=== PATIENT | male | born 1955 | race Caucasian/White ===

== ENCOUNTER 2019-06-04 07:08 | Inpatient (IN) ==
[2019-06-04] MEDS ORDERED: Famotidine 20 MG/2 ML VIAL IVP ONE (07:27)
[2019-06-04] MEDS ORDERED: Acetaminophen IV 1,000 MG/100 ML INFUS..BTL IVPB ONE (07:28)
[2019-06-04] MEDS ORDERED: Gabapentin 300 MG CAPSULE PO ONE (07:28)
[2019-06-04] MEDS ORDERED: Celecoxib 100 MG CAPSULE PO ONE (07:28)
[2019-06-04] MEDS ORDERED: Ringers Solution, Lactated 1,000 ML IVC SCH ×2 (07:30→11:52)
[2019-06-04] MEDS ORDERED: CeFAZolin Syr 2,000MG/20 ML 2,000 MG/20 ML SYRINGE IVPB ONE (07:32)
[2019-06-04] MEDS ORDERED: *HR* OxyCODONE Immed Rel 5 MG TABLET PO PRN ×2 (08:12→11:52)
[2019-06-04] MEDS ORDERED: Ondansetron 4 MG/2 ML VIAL IVP ONE (08:12)
[2019-06-04] MEDS ORDERED: Lidocaine -MPF 2% 2 ML VIAL ONE (08:24)
[2019-06-04] MEDS ORDERED: Propofol 500 MG/50 ML INFUS..BTL ONE (08:24)
[2019-06-04] MEDS ORDERED: *HR* Midazolam HCl 2 MG/2 ML VIAL ONE (08:24)
[2019-06-04] MEDS ORDERED: Ondansetron 4 MG/2 ML VIAL ONE (08:24)
[2019-06-04] MEDS ORDERED: Dexamethasone 4 MG/ML VIAL ONE (08:24)
[2019-06-04] MEDS ORDERED: *HR* FentaNYL (PF) 100 MCG/2 ML VIAL ONE (08:24)
[2019-06-04] MEDS ORDERED: Ethanol\\Acetic Acid\\Na Ace\\Ben 1,000 ML IRRIG.SOLN IR ONE (08:36)
[2019-06-04] MEDS ORDERED: Tranexamic Acid 1,000 MG/10 ML VIAL ONE (09:41)
[2019-06-04] MEDS ORDERED: EPHEDrine 50 MG/ML VIAL ONE (09:46)
[2019-06-04 11:28] LABS: Hematocrit 37.8 % (37.5-50.1); Hemoglobin 12.8 g/dL (12.9-16.9)
[2019-06-04] MEDS ORDERED: D5% in Water 1,000 ML IVC PRN (11:52)
[2019-06-04] MEDS ORDERED: Dextrose Gel 15 GM/37.5 ML TUBE PO PRN ×2 (11:52)
[2019-06-04] MEDS ORDERED: Temazepam 15 MG CAPSULE PO PRN (11:52)
[2019-06-04] MEDS ORDERED: NON-FORMULARY MEDICATION 1 EACH EACH (Multivitamin [Daily Multiple Vitamin] 1 TAB) PO SCH (11:52)
[2019-06-04] MEDS ORDERED: *HR* Promethazine 25 MG/ML VIAL IVP PRN (11:52)
[2019-06-04] MEDS ORDERED: MOM Conc 10 ML UD.LIQ PO PRN (11:52)
[2019-06-04] MEDS ORDERED: HYDROcodone BIT/Homatropine 5 MG TABLET PO PRN (11:52)
[2019-06-04] MEDS ORDERED: *HR* Dextrose 50 % in Water (Syg) 50 ML SYRINGE IVP PRN (11:52)
[2019-06-04] MEDS ORDERED: Naloxone 0.4 MG/ML INJ IVP PRN (11:52)
[2019-06-04] MEDS ORDERED: Sennosides 8.6 MG TABLET PO PRN (11:52)
[2019-06-04] MEDS ORDERED: Ondansetron 4 MG/2 ML VIAL IVP PRN (11:52)
[2019-06-04] MEDS: Insulin LISPRO 300 UNITS/3 ML VIAL SQ SCH ×2 (12:48→17:34)
[2019-06-04] MEDS: *HR* Metformin 500 MG TABLET PO SCH ×2 (12:55→17:33)
[2019-06-04] MEDS: Multivit/Ca/Min/Fe/FA 1 TAB TABLET PO SCH (12:57)
[2019-06-04] MEDS: Ascorbic Acid 500 MG TABLET PO SCH (17:33)
[2019-06-04] MEDS ORDERED: Insulin LISPRO 300 UNITS/3 ML VIAL SQ SCH (21:00)
[2019-06-05 06:21] LABS: Basophils % 0.1 %; Eosinophils % 0.2 %; Hematocrit 34.3 % (37.5-50.1); Hemoglobin 11.6 g/dL (12.9-16.9); Immature Granulocytes % 0.4 % (0-4); Lymphocytes # 1.3 K/mcL (0.6-4.6); Lymphocytes % 15.4 %; Mean Corpuscular HGB Conc 33.8 g/dL (31.6-35.5); Mean Corpuscular Hemoglobin 32.7 pg (28.0-33.3); Mean Corpuscular Volume 96.6 fL (83.0-100.0); Mean Platelet Volume 9.7 fL (9.4-12.4); Monocytes % 11.5 %; Neutrophils # 6.1 K/mcL (1.6-8.9); Platelet Count 150 K/mcL (140-400); Red Blood Count 3.55 M/mcL (4.19-5.50); Red Cell Distribution Width 12.6 % (11.5-14.5); Segmented Neutrophils % 72.4 %; White Blood Count 8.4 K/mcL (4.3-11.1)
[2019-06-05 06:43] LABS: BUN/Creatinine Ratio 22 (6-26); Blood Urea Nitrogen 22 mg/dL (8-23); Calcium 8.3 mg/dL (8.6-10.3); Carbon Dioxide 26 mEq/L (23-29); Chloride 101 mEq/L (98-107); Glucose 233 mg/dL (70-105); Osmolality,Calculated 297 (280-300); Potassium 3.7 mEq/L (3.5-5.1); Sodium 138 mEq/L (136-145); eGFR For African Americans > 60 (> 60); eGFR For Non-African Americans > 60 (> 60)
[2019-06-05] MEDS ORDERED: *HR* Enoxaparin 30 MG/0.3 ML SYRINGE SQ SCH ×2 (08:29)
[2019-06-05] MEDS: Multivit/Ca/Min/Fe/FA 1 TAB TABLET PO SCH (08:48)
[2019-06-05] MEDS: Ascorbic Acid 500 MG TABLET PO SCH (08:48)
[2019-06-05] MEDS: *HR* Metformin 500 MG TABLET PO SCH (08:50)
[2019-06-05] MEDS: Insulin LISPRO 300 UNITS/3 ML VIAL SQ SCH (08:51)
[2019-06-05 11:02] VITALS: BP 155/77
== END 2019-06-05 12:03 | disposition home or self-care (01) | DRG 470 ==
LOC: SAMDAY 07:08 → 3NENU 07:08 → SAMDAY 06-05 12:03 → 3NENU 06-14 19:43
PROVIDERS: ADMIT Orthopaedic Surgery; ATTEND Orthopaedic Surgery